=== PATIENT | female | born 1940 | race Caucasian/White ===

== ENCOUNTER 2025-03-19 11:50 | Emergency (ER) | payer MEDICARE ==
[~2025-03-19 11:50] MED LIST: Iopamidol 370 76% 100 ML VIAL ONE
[2025-03-19 13:12] LABS: Hematocrit 35.5 % (36.0-47.0); Hemoglobin 13.1 g/dL (12.0-16.0); Mean Corpuscular Hemoglobin 30.5 pg (27.0-31.0); Mean Corpuscular Volume 83.0 fl (78.0-98.0); Platelet Count 325 10x3/uL (130-400); Red Blood Cell (RBC) Count 4.27 mill/uL (4.20-5.40); White Blood Cell (WBC) Count 9.2 10x3/uL (4.8-10.8)
[2025-03-19 13:25] LABS: ALT (SGPT) 15 U/L (Less than 34); AST (SGOT) 21 U/L (11-34); Albumin 4.0 g/dL (3.1-4.5); Alkaline Phosphatase 90 U/L (40-110); Anion Gap 20 mmol/L (10-20); BUN (Urea Nitrogen) 21 mg/dL (9.8-20.1); Bilirubin, Total 0.7 mg/dL (0.3-1.2); Calc. Creatinine Clearance 0 mL/min (70-130); Calcium 9.1 mg/dL (7.8-10.44); Carbon Dioxide 20 mmol/L (23-31); Chloride 105 mmol/L (98-107); Globulin 2.6 g/dL (2.4-3.5); Glucose 156 mg/dL (83-110); Magnesium 1.5 mg/dL (1.6-2.6); Potassium 4.2 mmol/L (3.5-5.1); Sodium 141 mmol/L (136-145)
[2025-03-19 13:26] LABS: Troponin I Less than 0.010 ng/mL (< 0.028)
[2025-03-19 13:31] LABS: MDiff Complete? YES
[2025-03-19] MEDS ORDERED: Aspirin 325 MG TAB ONE (14:00)
[2025-03-19] MEDS ORDERED: Magnesium 2 GM/50 ML BAG (IN WATER) ONE (14:00)
== END 2025-03-20 00:25 | disposition short-term general hospital (02) ==
LOC: BURERS 11:50
DX: E83.42 Hypomagnesemia (principal); I48.91 Unspecified atrial fibrillation; E87.20 Acidosis, unspecified; E11.9 Type 2 diabetes mellitus without complications; E78.00 Pure hypercholesterolemia, unspecified; Z79.84 Long term (current) use of oral hypoglycemic drugs; Z79.899 Other long term (current) drug therapy
CPT/HCPCS: 70450; 70496; 70498; 71045; 80053; 83735; 84443; 84484; 85025; 93005; 96365; J3475; Q9967